=== PATIENT | female | born 1955 | race Caucasian/White ===

== ENCOUNTER 2022-10-29 20:01 | Emergency (ER) | payer SELFPAY ==
[~2022-10-29] VITALS: Ht 152.4 cm; Wt 63.5 kg
[2022-10-29] MEDS ORDERED: LEVE500 (20:12)
[2022-10-29 20:31] LABS: Source, Urine Voided
[2022-10-29 20:45] LABS: Bilirubin, Urine Neg (Neg); Blood, Urine 4+ (Neg); Glucose Qualitative, Urine Neg (Neg); Ketones, Urine Neg (Neg); Leukocyte Esterase, Urine 1+ (Neg); Nitrite, Urine Neg (Neg); Protein, Urine 3+ (Neg); Urobilinogen, Urine NORM (Normal)
[2022-10-29 20:46] LABS: BASOPHILS ABSOLUTE AUTO 0.02 K/mm3 (0.00-0.23); BASOPHILS PERCENT AUTO 0 % (0-2); EOSINOPHILS PERCENT AUTO 0 % (0-6); Hematocrit 39.7 % (33.0-51.0); Hemoglobin 12.8 g/dL (11.5-16.0); IMMATURE GRAN ABSOLUTE AUTO 0.06 K/mm3 (0.00-0.10); IMMATURE GRAN PERCENT AUTO 1 % (0-1); LYMPHOCYTES ABSOLUTE AUTO 0.44 K/mm3 (0.84-5.20); LYMPHOCYTES PERCENT AUTO 5 % (21-46); MONOCYTES ABSOLUTE AUTO 0.23 K/mm3 (0.16-1.47); MONOCYTES PERCENT AUTO 3 % (4-13); Mean Corpuscular HGB 29.8 pg (26.0-34.0); Mean Corpuscular HGB Conc 32.2 g/dL (31.5-36.5); Mean Corpuscular Volume 93 fL (80-100); Mean Platelet Volume 10.2 fL (9.1-12.4); NEUTROPHILS ABSOLUTE AUTO 7.53 K/mm3 (1.96-9.15); NEUTROPHILS PERCENT AUTO 91 % (41-73); Platelet Count 100 K/mm3 (150-400); RDW Coefficient Variation 13.5 % (11.7-14.2); RDW Standard Deviation 45.7 fL (35.1-46.3); Red Blood Cell Count 4.29 M/mm3 (3.80-5.20); White Blood Cell Count 8.28 K/mm3 (4.00-11.30)
[2022-10-29 20:50] LABS: Appearance, Urine Clear (Clear); Color, Urine Yellow (P-Yellow)
[2022-10-29 20:57] LABS: Amorphous Light (0-Heavy); Bacteria Mod /hpf; Squamous Epithelial Cells Few /hpf (Few); White Blood Cells, Urine 0-2 /hpf (0-5)
[2022-10-29 21:09] LABS: Albumin, Blood 3.7 g/dL (3.4-5.0); Albumin/Globulin Ratio 0.9 (0.8-1.8); Bilirubin, Total 0.7 mg/dL (0.1-1.0); Calcium, Blood 8.9 mg/dL (8.5-10.1); Creatinine, Blood 1.68 mg/dL (0.40-1.00); Globulin, Blood 4.3 g/dL (2.2-4.0); Potassium, Blood 4.5 mmol/L (3.5-5.5)
[2022-10-30] MEDS ORDERED: PROM12.5S PR (00:22)
[2022-10-30 00:45] VITALS: BP 182/117
== END 2022-10-30 00:55 | disposition home or self-care (01) ==
LOC: ER 20:01
PROVIDERS: Student in an Organized Health Care Education/Training Program
DX: K52.9 Noninfective gastroenteritis and colitis, unspecified (principal); M25.552 Pain in left hip; Z88.8 Allergy status to other drugs, medicaments and biological substances; Z79.899 Other long term (current) drug therapy; I50.9 Heart failure, unspecified; E11.22 Type 2 diabetes mellitus with diabetic chronic kidney disease; N18.9 Chronic kidney disease, unspecified; F17.210 Nicotine dependence, cigarettes, uncomplicated
CPT/HCPCS: 74177; 80053; 81001; 83690; 85025; 87086; 96361; 96374-59; 96375; 96376; 99284-25; J1790; J2060; J2270; J2405; J7030; Q9967

== ENCOUNTER 2022-11-22 06:13 | Inpatient (IN) | payer OTHER ==
[~2022-11-22] VITALS: Ht 149.9 cm; Wt 64.5 kg
[~2022-11-22 06:13] MED LIST: LEVE500; PROM12.5S PR
[2022-11-22 06:53] LABS: BASOPHILS ABSOLUTE AUTO 0.02 K/mm3 (0.00-0.23); BASOPHILS PERCENT AUTO 1 % (0-2); EOSINOPHILS ABSOLUTE AUTO 0.11 K/mm3 (0.00-0.68); EOSINOPHILS PERCENT AUTO 3 % (0-6); Hematocrit 38.3 % (33.0-51.0); IMMATURE GRAN ABSOLUTE AUTO 0.02 K/mm3 (0.00-0.10); IMMATURE GRAN PERCENT AUTO 1 % (0-1); LYMPHOCYTES ABSOLUTE AUTO 0.53 K/mm3 (0.84-5.20); LYMPHOCYTES PERCENT AUTO 13 % (21-46); MONOCYTES ABSOLUTE AUTO 0.24 K/mm3 (0.16-1.47); MONOCYTES PERCENT AUTO 6 % (4-13); Mean Corpuscular HGB 29.8 pg (26.0-34.0); Mean Corpuscular HGB Conc 31.3 g/dL (31.5-36.5); Mean Corpuscular Volume 95 fL (80-100); Mean Platelet Volume 10.6 fL (9.1-12.4); NEUTROPHILS ABSOLUTE AUTO 3.25 K/mm3 (1.96-9.15); NEUTROPHILS PERCENT AUTO 78 % (41-73); Platelet Count 110 K/mm3 (150-400); RDW Standard Deviation 49.4 fL (35.1-46.3); Red Blood Cell Count 4.03 M/mm3 (3.80-5.20); White Blood Cell Count 4.17 K/mm3 (4.00-11.30)
[2022-11-22 07:12] LABS: Albumin, Blood 3.6 g/dL (3.4-5.0); Albumin/Globulin Ratio 0.9 (0.8-1.8); Bilirubin, Total 0.5 mg/dL (0.1-1.0); Bun/Creatinine Ratio 15.9 (12.0-20.0); Creatinine, Blood 2.01 mg/dL (0.40-1.00); Globulin, Blood 3.9 g/dL (2.2-4.0); Magnesium, Blood 1.8 mg/dL (1.6-2.4); Potassium, Blood 4.9 mmol/L (3.5-5.5); Total Protein, Blood 7.5 g/dL (6.4-8.2)
[2022-11-22 12:31] LABS: CHOL/HDL RATIO 2.7; Cholesterol 155 mg/dL (50-200); HDL Cholesterol 58 mg/dL (>39); LDL/HDL RATIO 1.5; Low Density Lipoprotein Chol 89 mg/dL (0-110); Triglycerides 41 mg/dL (30-160); Very Low Density Lipoprot Chol 8 mg/dL (6-32)
[2022-11-22] MEDS ORDERED: LEVE500 PO (14:54)
[2022-11-22] MEDS ORDERED: CYCL10 PO (14:55)
--- NOTE | 2022-11-22 15:00 | NUR ---
PT ARRIVED TO ROOM 329 FROM ED AT 1440 BY [facility]. TRANSFERED FROM [facility] TO BED USING HER CANE AND SBA. SETTLED IN TO BED AND ORIENTED TO ROOM AND CALL BUTTON.
--- NOTE | 2022-11-22 18:56 | NUR ---
SHIFT SUMMARY PT UP TO BATHROOM SEVERAL TIMES AND VOIDING SMALL AMOUNTS. USED CANE FIRST FEW TIMES BUT TRANSITIONED HER TO A FWW WITH IMPROVEMENT. REPORTS SHE HAD A HIP FX A COUPLE YEARS AGO THAT WASN'T SURGICALLY TREATED AND HAS BEEN PAINFUL SINCE. WALKS WITH A LIMP. STATES SHE GENERALLY TAKE OXYCODONE 5-10 MG WHICH SHE RAN OUT OF YESTERDAY THAT SHE HAD BEEN GETTING FROM A PAIN CLINIC IN [place] NEAR HER PREVIOUS HOME. SPOKE WITH MD AND RECEIVED ORDER FOR OXYCODONE FOR PAIN CONTROL. WILL REPORT CONDITION TO ONCOMING SHIFT.
[2022-11-22 19:54] VITALS: BP 150/78
[2022-11-23 02:47] VITALS: BP 147/81
--- NOTE | 2022-11-23 04:31 | NUR ---
SHIFT SUMMARY PATIENT IS ALERT AND ORIENTED. PATIENT HAS HAD NO ACUTE EVENTS THIS SHIFT. VITAL SIGNS REVIEWED. PATIENT HAS HAD NO COMPLAINTS OF SOB, NAUSEA, OR VOMITTING THIS SHIFT. PATIENT HAS COMPLAINED OF PAIN, OF WHICH IS CHRONIC PAIN. MEDICATED PER EMAR. PATIENT HAS BEEN UP MULTIPLE TIMES WITH ASSISTANCE FOR SMALL VOIDS. PATIENT HAS BEEN RESTING MOST OF SHIFT. BED IN LOCKED AND LOWEST POSITION. CALL LIGHT IN PLACE. WILL MONITOR UNTIL SHIFT CHANGE.
[2022-11-23 05:15] LABS: BASOPHILS ABSOLUTE AUTO 0.01 K/mm3 (0.00-0.23); BASOPHILS PERCENT AUTO 0 % (0-2); EOSINOPHILS PERCENT AUTO 0 % (0-6); Hematocrit 35.2 % (33.0-51.0); Hemoglobin 11.3 g/dL (11.5-16.0); IMMATURE GRAN ABSOLUTE AUTO 0.02 K/mm3 (0.00-0.10); IMMATURE GRAN PERCENT AUTO 1 % (0-1); LYMPHOCYTES ABSOLUTE AUTO 0.28 K/mm3 (0.84-5.20); LYMPHOCYTES PERCENT AUTO 7 % (21-46); MONOCYTES ABSOLUTE AUTO 0.12 K/mm3 (0.16-1.47); MONOCYTES PERCENT AUTO 3 % (4-13); Mean Corpuscular HGB 29.8 pg (26.0-34.0); Mean Corpuscular HGB Conc 32.1 g/dL (31.5-36.5); Mean Corpuscular Volume 93 fL (80-100); NEUTROPHILS ABSOLUTE AUTO 3.71 K/mm3 (1.96-9.15); NEUTROPHILS PERCENT AUTO 90 % (41-73); Platelet Count 102 K/mm3 (150-400); RDW Coefficient Variation 13.5 % (11.7-14.2); Red Blood Cell Count 3.79 M/mm3 (3.80-5.20); White Blood Cell Count 4.14 K/mm3 (4.00-11.30)
[2022-11-23 05:41] LABS: Albumin, Blood 3.4 g/dL (3.4-5.0); Albumin/Globulin Ratio 0.9 (0.8-1.8); Bilirubin, Total 0.5 mg/dL (0.1-1.0); Bun/Creatinine Ratio 21.3 (12.0-20.0); Calcium, Blood 8.8 mg/dL (8.5-10.1); Creatinine, Blood 1.97 mg/dL (0.40-1.00); Globulin, Blood 3.9 g/dL (2.2-4.0); Magnesium, Blood 1.8 mg/dL (1.6-2.4); Potassium, Blood 5.4 mmol/L (3.5-5.5); Total Protein, Blood 7.3 g/dL (6.4-8.2)
[2022-11-23 06:36] VITALS: BP 187/110
[2022-11-23 07:12] VITALS: BP 150/87
[2022-11-23 15:13] VITALS: BP 140/83
--- NOTE | 2022-11-23 17:03 | NUR ---
SHIFT SUMMARY PT INDEPENDENT UP TO BSC. REPORTS BACK PAIN THAT IS REPRODUCEABLE WITH PALPATION. NO FURTHER CHEST PAIN SINCE THIS MORNING AT SHIFT CHANGE. DOES STATE SHE HAS SPASMS IN VARIOUS PLACES ON HER BODY THROUGH THE DAY. WALKS WITH A LIMP DUE TO HX OF L HIP INJURY. SOB WITH ACTIVITY. USING A FWW FOR MOBILITY AND IT WORKS BETTER THAN A CANE FROM OBSERVATION. STATES SHE HAS A WALKER AT HOME BUT A WHEEL IS BROKE ON IT.
[2022-11-23 19:54] VITALS: BP 125/70
[2022-11-24 04:36] VITALS: BP 132/75
--- NOTE | 2022-11-24 04:47 | NUR ---
SHIFT MOSTLY UNREMARKABLE. PT TOOK 2100 MEDICATIONS WITHOUT DIFFICULTY. UNTIL VERY RECENTLY, PAIN WAS WELL MANAGED ON CURRENT MEDICATION REGIMEN. PT COMPLAINED OF SEVERE BREAKTHROUGH PAIN FOR WHICH I WAS ABLE TO RECEIVE ORDER FROM HOSPITALIST FOR 25 MCG OF FENTANYL ONE TIME WITH 25 MCG MORE IN A HALF HOUR IF PAIN HAD NOT SUBSIDED. ENTERED ORDER AND ADMINISTERED FIRST DOSE, WILL MONITOR TO SEE HOW PAIN RESPONDS TO THIS DOSE. PULLED RHA IV DUE TO LEAKING. PT REQUESTED TO NOT HAVE NEW IV PLACED QUITE YET SHE WOULD LIKE TO TRY AND SLEEP. SHIFT HAS OTHERWISE BEEN UNREMARKABLE. PT IS AOX4, PLEASANT, COOPERATIVE WITH CARE. BED LOCKED IN LOWEST POSITION. CALL LIGHT LEFT WITHIN REACH.
[2022-11-24 07:20] VITALS: BP 128/66
[2022-11-24 08:40] LABS: Hematocrit 34.6 % (33.0-51.0); Hemoglobin 11.3 g/dL (11.5-16.0); Mean Corpuscular HGB 29.9 pg (26.0-34.0); Mean Corpuscular HGB Conc 32.7 g/dL (31.5-36.5); Mean Corpuscular Volume 92 fL (80-100); Mean Platelet Volume 10.8 fL (9.1-12.4); Platelet Count 116 K/mm3 (150-400); RDW Coefficient Variation 13.9 % (11.7-14.2); RDW Standard Deviation 47.2 fL (35.1-46.3); Red Blood Cell Count 3.78 M/mm3 (3.80-5.20); White Blood Cell Count 6.39 K/mm3 (4.00-11.30)
[2022-11-24 09:02] LABS: Albumin, Blood 3.4 g/dL (3.4-5.0); Albumin/Globulin Ratio 0.9 (0.8-1.8); Bilirubin, Total 0.4 mg/dL (0.1-1.0); Bun/Creatinine Ratio 27.6 (12.0-20.0); Calcium, Blood 8.1 mg/dL (8.5-10.1); Creatinine, Blood 2.68 mg/dL (0.40-1.00); Globulin, Blood 3.9 g/dL (2.2-4.0); Potassium, Blood 5.1 mmol/L (3.5-5.5); Total Protein, Blood 7.3 g/dL (6.4-8.2)
[2022-11-24 15:01] VITALS: BP 166/95
--- NOTE | 2022-11-24 16:43 | NUR ---
SHIFT SUMMARY PT A&OX4, MOOD UP AND DOWN T/O SHIFT. FAMILY IN TO SEE PT DURING VISITING HOURS. PT BECOMES TEARFUL T/O SHIFT. DUE TO PAIN/TALKING ABOUT RECENTLY FAMILY MEMBERS. VSS. CALL LIGHT W/IN REACH. TOLERATING PO INTAKE WELL SBA. RA
[2022-11-24 20:18] VITALS: BP 143/84
--- NOTE | 2022-11-24 20:31 | NUR ---
CALL FROM [facility] AT 2020. PT HAS HAD [address] ELEVATION ON MCL LEAD OVER THE PAST SEVERAL HOURS. UP TO HIGH OF 2.2 FROM BASELINE OF 2.0. VITALS WNL. PT ASYMPTOMATIC OUTSIDE OF RIB AND BACK PAIN WHICH IS CHRONIC. NO OTHER SYMPTOMS. DISCUSSION WITH ZAK GRAHAM RN. NO NEED TO NOTIFY HOSPITALIST UNLESS ELEVATION BECOMES MORE SEVERE OR OTHER SYMPTOMS PRESENT. WILL CONTINUE TO MONITOR.
[2022-11-25 04:00] VITALS: BP 165/95
--- NOTE | 2022-11-25 05:13 | NUR ---
SHIFT MOSTLY UNREMARKABLE. PT HAD FEW SCATTERED EVENTS OF VERY MILD ST ELEVATION ON MCL LEAD PER ASSISTANT VICE PRESIDENT. DISCUSSED WITH ZAK STRAUSS RN. SEE RELATED NOTE FOR DETAILS. SHIFT HAS OTHERWISE BEEN UNREMARKABLE. PAIN SOMEWHAT WELL MANAGED PER EMAR. PT STILL HAS PAIN BETWEEN DOSES AND REPORTS SHE TYPICALLY TAKES A HIGHER DOSAGE AT HOME BUT PER DAY SHIFT REPORT PHYSICIAN IS RESISTANT TO INCREASE DOSAGE. PT WAS COMPLAINING OF CRAMPS IN HAND EARLY IN SHIFT. NOTIFIED HOSPITALIST WHO ORDERED DAILY MAGNESIUM TO ATTEMPT TO ALLEVIATE THIS. ADMINISTERED MAG OXIDE EARLY IN SHIFT SINCE WHICH TIME PT HAS NOT COMPLAINED OF HAND CRAMPS. AOX4, PLEASANT, COOPERATIVE WITH CARE. INDEPENDENT TO COMMODE WITHIN ROOM. USES CALL LIGHT APPROPRIATELY. BED LOCKED IN LOWEST POSITION. CALL LIGHT LEFT WITHIN REACH.
[2022-11-25 06:03] LABS: Bun/Creatinine Ratio 30.8 (12.0-20.0); Calcium, Blood 8.2 mg/dL (8.5-10.1); Creatinine, Blood 2.73 mg/dL (0.40-1.00); Potassium, Blood 4.3 mmol/L (3.5-5.5)
[2022-11-25 07:58] VITALS: BP 118/65
[2022-11-25 16:25] VITALS: BP 157/77
--- NOTE | 2022-11-25 16:50 | NUR ---
SHIFT SUMMARY- VSS. C/O PAIN, BACK/CHEST/RIB. NO CARDIAC EVENTS REPORTED FROM TELE. ON RA, PULSE OX HIGH 90'S. A&O X4. PLEASANT AND COMPLIANT. WILL CONTINUE TO MONITOR. CALL LIGHT IN REACH. BED ALARM ON.
[2022-11-25 19:42] VITALS: BP 170/91
--- NOTE | 2022-11-26 04:06 | NUR ---
SHIFT MOSTLY UNREMARKABLE. PRIMARY SHIFT GOAL REMAINS PAIN MANAGEMENT PT HAS FREQUENT BREAKTHROUGH PAIN ON CURRENT OXYCODONE REGIMEN. NOTES PAIN REMAINS IN UPPER BACK AND RIB. PT ABLE TO BEAR THROUGH IT WITHOUT INCREASED DOSAGE OR ADDITIONAL MEDICATION THUS FAR. ABLE TO SLEEP IN BED AFTER 0200 OXYCODONE ADMINISTRATION. SHIFT HAS OTHERWISE BEEN UNREMARKABLE. TELE ON THROUGHOUT SHIFT, NO EVENTS. CONTINUOUS PULSE OX IN PLACE, SATTING WELL ON ROOM AIR. AOX4, PLEASANT, COOPERATIVE WITH CARE.
[2022-11-26 04:13] VITALS: BP 162/78
[2022-11-26 05:22] LABS: Hematocrit 36.2 % (33.0-51.0); Hemoglobin 11.5 g/dL (11.5-16.0); Mean Corpuscular HGB 29.7 pg (26.0-34.0); Mean Corpuscular HGB Conc 31.8 g/dL (31.5-36.5); Mean Corpuscular Volume 94 fL (80-100); Mean Platelet Volume 10.6 fL (9.1-12.4); Platelet Count 122 K/mm3 (150-400); RDW Coefficient Variation 13.8 % (11.7-14.2); RDW Standard Deviation 47.2 fL (35.1-46.3); Red Blood Cell Count 3.87 M/mm3 (3.80-5.20); White Blood Cell Count 4.49 K/mm3 (4.00-11.30)
[2022-11-26 05:49] LABS: Albumin, Blood 3.4 g/dL (3.4-5.0); Albumin/Globulin Ratio 0.9 (0.8-1.8); Bilirubin, Total 0.4 mg/dL (0.1-1.0); Bun/Creatinine Ratio 31.3 (12.0-20.0); Calcium, Blood 8.5 mg/dL (8.5-10.1); Creatinine, Blood 2.68 mg/dL (0.40-1.00); Globulin, Blood 3.6 g/dL (2.2-4.0); Magnesium, Blood 2.5 mg/dL (1.6-2.4); Potassium, Blood 4.9 mmol/L (3.5-5.5)
[2022-11-26 07:59] VITALS: BP 139/71
--- NOTE | 2022-11-26 18:27 | NUR ---
SHIFT SUMMARY PT AOX4 AND COOPERATIVE WITH CARE, CALLS WELL. NO COMPLAINTS OTHER THAN OF PAIN THIS SHIFT. THE PROVIDER WAS NOTIFIED AND ADJUSTEMENTS WERE MADE TO HER PAIN MEDICATIONS. PT HAS BEEN SLEEPING OFF AND ON T/O THE SHIFT, USING THE BSC INDEPENDENTLY. CALL LIGHT WITHIN REACH AND BED IN THE LOWEST POSITION. WILL REPORT TO ONCOMING NURSE.
[2022-11-26 19:57] VITALS: BP 128/66
[2022-11-27 03:04] VITALS: BP 140/79
[2022-11-27 06:01] LABS: Albumin, Blood 3.2 g/dL (3.4-5.0); Anion Gap 9 mmol/L (6-16); Blood Urea Nitrogen 77 mg/dL (8-24); Bun/Creatinine Ratio 35.2 (12.0-20.0); CO2, Blood 23 mmol/L (21-32); Calcium, Blood 8.6 mg/dL (8.5-10.1); Chloride, Blood 110 mmol/L (98-108); Creatinine, Blood 2.19 mg/dL (0.40-1.00); Glomerular Filtration Rate 24 (60-); Glucose, Blood 110 mg/dL (70-99); Phosphorus, Blood 4.9 mg/dL (2.5-4.9); Potassium, Blood 5.6 mmol/L (3.5-5.5); Sodium, Blood 142 mmol/L (136-145)
[2022-11-27 07:24] VITALS: BP 136/74
--- NOTE | 2022-11-27 07:25 | NUR ---
SHIFT SUMMARY: A&O X 4, ABLE TO MAKE NEEDS KNOWN, USES CALL LIGHT APPROPRIATELY. OXYCODONE 5MG Q 4 HOURS FOR PAIN MANAGEMENT. REQUESTED CHEESE STICKS THIS SHIFT FOR SNACK. SHE AMBULATES IN ROOM WITHOUT ASSISTANCE, USES BSC. CONTINUES ON TELE FOR MONITORING. CALL LIGHT WITHIN REACH.
--- NOTE | 2022-11-27 09:54 | NUR ---
NURSE NOTE THIS NURSE AGREES WITH STUDENT NURSE SHIFT ASSESSMENT
[2022-11-27 14:37] VITALS: BP 143/72
[2022-11-27 15:26] VITALS: BP 157/87
--- NOTE | 2022-11-27 17:28 | NUR ---
SHIFT SUMMARY: PT REMAINS IN BED THROUGHOUT THIS SHIFT. REPORTS OF CHRONIC BACK PAIN CONTINUE AND PT MEDICATED WITH PRN ROXICODONE AT NEAR MAXIMUM INTERVALS WITH MODERATE PAIN RELIEF REPORTED AT REASSESSMENT. PT COMPLIANT WITH CARE AND TAKES ALL SCHEDULED MEDICATIONS WITH THE EXCEPTION OF MIRALAX SHE REPORTS LOOSE BOWELS TODAY. TELE MONITORING CONTINUES WITH NSR AT 93 BEATS/MIN. BLOOD SUGARS SOMEWHAT STABLE WITH ONLY LUNCH TIME SUGAR REQUIRING INSULIN COVERAGE. PT DECLINES TO AMBULATE CITING DISCOMFORT AND EXERTIONAL FATIGUE.
--- NOTE | 2022-11-27 17:46 | NUR ---
NURSE NOTE THIS RN AGREES WITH SHIFT SUMMARY AND ASSESSMENTS DONE BY STONE PLANER.
[2022-11-27 19:13] VITALS: BP 129/63
--- NOTE | 2022-11-27 23:54 | NUR ---
SHIFT SUMMARY: A&O X 3, ABLE TO MAKE NEEDS KNOWN. DECLINED TO AMBULATE THIS EVENING IN HALLWAY. IS DANGLING AT SIDE OF BED. PAIN REQUEST ONE TIME THIS EVENING OXYCODONE 5 MG WHICH IS EFFECTIVE. CALL LIGHT WITHIN REACH.
[2022-11-28 02:55] VITALS: BP 146/78
--- NOTE | 2022-11-28 05:25 | NUR ---
P[place] WAS UP AND DOWN FOR MOST OF THE NIGHT. ORIENTED, CALLS TO MAKE NEEDS KNOWN, IND TO BSC OR RESTROOM. CHRONIC PAIN TREATED PER MAR. HTN, OTHERWISE VSS. ON RA AND CONT PULSE OX. WET, DIM, COARSE LUNG SOUNDS WITH A PRODUCTIVE COUGH. WILL CONT TO MONITOR.
[2022-11-28 06:19] LABS: Albumin, Blood 3.3 g/dL (3.4-5.0); Anion Gap 7 mmol/L (6-16); Blood Urea Nitrogen 66 mg/dL (8-24); Bun/Creatinine Ratio 31.6 (12.0-20.0); CO2, Blood 21 mmol/L (21-32); Calcium, Blood 8.5 mg/dL (8.5-10.1); Chloride, Blood 111 mmol/L (98-108); Creatinine, Blood 2.09 mg/dL (0.40-1.00); Glomerular Filtration Rate 26 (60-); Glucose, Blood 84 mg/dL (70-99); Phosphorus, Blood 4.8 mg/dL (2.5-4.9); Sodium, Blood 139 mmol/L (136-145)
[2022-11-28 06:21] LABS: Potassium, Blood 6.1 mmol/L (3.5-5.5)
[2022-11-28 07:27] VITALS: BP 142/76
[2022-11-28 10:28] LABS: Bun/Creatinine Ratio 31.2 (12.0-20.0); Calcium, Blood 8.9 mg/dL (8.5-10.1); Creatinine, Blood 2.08 mg/dL (0.40-1.00); Potassium, Blood 5.3 mmol/L (3.5-5.5)
--- NOTE | 2022-11-28 11:43 | NUR ---
NURSE NOTE THIS RN HAS REVIEWED AND AGREED WITH STUDENT NURSES SHIFT ASSESSMENT AND DOCUMENTATION
[2022-11-28] MEDS ORDERED: ASPI81CH PO (11:48)
[2022-11-28] MEDS ORDERED: ALBU2.5V5 INH (11:48)
[2022-11-28] MEDS ORDERED: GUAI600T33 PO (11:49)
[2022-11-28] MEDS ORDERED: BUDESONIDE0.5 MG/2 M INH (11:49)
[2022-11-28] MEDS ORDERED: IPRAT-ALBUT 0.5-3 ML INH (11:50)
[2022-11-28] MEDS ORDERED: OXYC5 PO (11:51)
[2022-11-28] MEDS ORDERED: ASPERFLEX1 EACH TOP (11:51)
[2022-11-28] MEDS ORDERED: ALBU90OI INH (11:52)
[2022-11-28] MEDS ORDERED: MIRALAX1714 PO (11:52)
[2022-11-28] MEDS ORDERED: FURO20 PO (11:53)
--- NOTE | 2022-11-28 13:05 | NUR ---
DISCHARGE SUMMARY: PT DISCHARGED TO HOME WITH FAMILY AND AWAITING POV. IV REMOVED AND INTACT. PT PROVIDED DISCHARGE INSTRUCTIONS TO INCLUDE DIET AND FLUID RESTRICTIONS, MEDICATION REGIMEN, SMOKING CESSATION, AND FOLLOW UP CARE. PT AND FAMILY ALLOWED TO ASK QUESTIONS AND ANSWERED BY MED FLOOR STAFF. PT BELONGINGS GATHERED AND SENT HOME WITH PT. PROFESSOR OF JOURNALISM IN TO SPEAK WITH PT AND FAMILY ABOUT ADDITIONAL BENEFITS AND RESOURCES THAT MAY BE AVAILABLE. PT DISCHARGED VIA WHEELCHAIR.
--- NOTE | 2022-11-28 13:31 | NUR ---
DISCHARGE NOTE THIS RN READ AND AGREED WITH TROLLEY COACH DRIVER DISCHARGE NOTE, SHIFT ASSESSMENT AND DOCUMENTATION.
== END 2022-11-28 15:40 | disposition home health service (06) | DRG 291 ==
LOC: ER 06:13 → MEDS 10:55
PROVIDERS: Internal Medicine; Student in an Organized Health Care Education/Training Program; ADMIT Internal Medicine
DX: I50.33 Acute on chronic diastolic (congestive) heart failure (principal); J96.91 Respiratory failure, unspecified with hypoxia; J44.1 Chronic obstructive pulmonary disease with (acute) exacerbation; K76.6 Portal hypertension; M87.852 Other osteonecrosis, left femur; K70.30 Alcoholic cirrhosis of liver without ascites; Z66 Do not resuscitate; D69.6 Thrombocytopenia, unspecified; N18.30 Chronic kidney disease, stage 3 unspecified; E11.22 Type 2 diabetes mellitus with diabetic chronic kidney disease; E87.5 Hyperkalemia; G40.909 Epilepsy, unspecified, not intractable, without status epilepticus; E11.65 Type 2 diabetes mellitus with hyperglycemia; G25.81 Restless legs syndrome; G89.4 Chronic pain syndrome; F17.210 Nicotine dependence, cigarettes, uncomplicated; M25.552 Pain in left hip; T38.0X5A Adverse effect of glucocorticoids and synthetic analogues, initial encounter; B95.2 Enterococcus as the cause of diseases classified elsewhere; B96.89 Other specified bacterial agents as the cause of diseases classified elsewhere; F10.11 Alcohol abuse, in remission; Z88.8 Allergy status to other drugs, medicaments and biological substances; Z79.899 Other long term (current) drug therapy; Z87.19 Personal history of other diseases of the digestive system; Z90.721 Acquired absence of ovaries, unilateral
CPT/HCPCS: 36415; 71046; 73522; 80048; 80053; 80061; 80069; 82947; 83036; 83735; 83880; 84132; 84145; 84484; 85025; 85027; 87070; 87077; 87186; 87205; 93005; 93010; 94640; 94664; 94760; 94762; 96365; 96366; 96375; 96376; 97116; 97162; 99285-25; A9270; C8929; J0612; J0696; J1100; J1644; J1815; J1940; J2270; J3010; Q9957

== ENCOUNTER 2023-01-27 13:11 | Emergency (ER) | payer MEDICARE, OTHER ==
[~2023-01-27] VITALS: Ht 152.4 cm; Wt 64.9 kg
[~2023-01-27 13:11] MED LIST changes: +ALBU2.5V5 INH; +ALBU90OI INH; +ASPERFLEX1 EACH TOP; +ASPI81CH PO; +BUDESONIDE0.5 MG/2 M INH; +CYCL10 PO; +DICY20 PO; +FURO20 PO; +GUAI600T33 PO; +IPRAT-ALBUT 0.5-3 ML INH; +LEVE500 PO; +METO10 PO; +MIRALAX1714 PO; +ONDA4ODT MM; +OXYC5 PO
[2023-01-27 15:07] LABS: BASOPHILS ABSOLUTE AUTO 0.02 K/mm3 (0.00-0.23); BASOPHILS PERCENT AUTO 0 % (0-2); EOSINOPHILS PERCENT AUTO 0 % (0-6); Hemoglobin 14.5 g/dL (11.5-16.0); IMMATURE GRAN ABSOLUTE AUTO 0.04 K/mm3 (0.00-0.10); IMMATURE GRAN PERCENT AUTO 0 % (0-1); LYMPHOCYTES ABSOLUTE AUTO 0.75 K/mm3 (0.84-5.20); LYMPHOCYTES PERCENT AUTO 8 % (21-46); MONOCYTES ABSOLUTE AUTO 0.37 K/mm3 (0.16-1.47); MONOCYTES PERCENT AUTO 4 % (4-13); Mean Corpuscular HGB 29.1 pg (26.0-34.0); Mean Corpuscular HGB Conc 33.7 g/dL (31.5-36.5); Mean Corpuscular Volume 86 fL (80-100); Mean Platelet Volume 11.1 fL (9.1-12.4); NEUTROPHILS ABSOLUTE AUTO 8.31 K/mm3 (1.96-9.15); NEUTROPHILS PERCENT AUTO 88 % (41-73); Platelet Count 72 K/mm3 (150-400); RDW Coefficient Variation 13.2 % (11.7-14.2); RDW Standard Deviation 42.4 fL (35.1-46.3); Red Blood Cell Count 4.99 M/mm3 (3.80-5.20); White Blood Cell Count 9.49 K/mm3 (4.00-11.30)
[2023-01-27 15:35] LABS: Albumin, Blood 4.5 g/dL (3.4-5.0); Albumin/Globulin Ratio 1.2 (0.8-1.8); Bilirubin, Total 0.9 mg/dL (0.1-1.0); Bun/Creatinine Ratio 15.4 (12.0-20.0); Calcium, Blood 9.2 mg/dL (8.5-10.1); Creatinine, Blood 1.75 mg/dL (0.40-1.00); Globulin, Blood 3.6 g/dL (2.2-4.0); Potassium, Blood 4.9 mmol/L (3.5-5.5); Total Protein, Blood 8.1 g/dL (6.4-8.2)
[2023-01-27] MEDS ORDERED: ONDA4ODT MM (19:56)
[2023-01-27] MEDS ORDERED: DEXA4 PO (19:56)
[2023-01-27] MEDS ORDERED: AERONEB GO1 EACH INH (19:56)
[2023-01-27] MEDS ORDERED: FAMO20 PO (19:56)
[2023-01-27] MEDS ORDERED: ALBU2.5V5 INH (19:56)
[2023-01-27 20:30] VITALS: BP 179/97
[2023-01-27 23:46] LABS: Campylobacter Sp Not Detected (NOT DETECT); Cryptosporidium Not Detected (NOT DETECT); Cyclospora Cayetanensis Not Detected (NOT DETECT); E. Coli O157 Not Detected (NOT DETECT); Entamoeba Histolytica Not Detected (NOT DETECT); Enteroaggregative E. coli-EAEC Not Detected (NOT DETECT); Enteropathogenic E. coli-EPEC Not Detected (NOT DETECT); Enterotoxigenic E. coli-ETEC Not Detected (NOT DETECT); Giardia Lamblia Not Detected (NOT DETECT); Plesiomonas Shigelloides Not Detected (NOT DETECT); Salmonella Sp Not Detected (NOT DETECT); Shiga Toxin-prod E. coli-STEC Not Detected (NOT DETECT); Shigella/Enteroin E. coli-EIEC Not Detected (NOT DETECT); Vibrio Cholerae Not Detected (NOT DETECT); Vibrio Sp Not Detected (NOT DETECT); Yersinia Enterocolitica Not Detected (NOT DETECT)
[2023-01-27 23:47] LABS: Adenovirus F 40/41 Not Detected (NOT DETECT); Astrovirus Not Detected (NOT DETECT); Norovirus GI/GII Not Detected (NOT DETECT); Rotavirus A Not Detected (NOT DETECT); Sapovirus Not Detected (NOT DETECT)
== END 2023-01-27 20:49 | disposition home or self-care (01) ==
LOC: ER 13:11
PROVIDERS: Emergency Medicine; Student in an Organized Health Care Education/Training Program
DX: J44.1 Chronic obstructive pulmonary disease with (acute) exacerbation (principal); E86.0 Dehydration; K52.9 Noninfective gastroenteritis and colitis, unspecified; Z88.8 Allergy status to other drugs, medicaments and biological substances; Z79.51 Long term (current) use of inhaled steroids; Z79.82 Long term (current) use of aspirin; Z79.1 Long term (current) use of non-steroidal anti-inflammatories (NSAID); Z79.899 Other long term (current) drug therapy; F17.210 Nicotine dependence, cigarettes, uncomplicated; E11.22 Type 2 diabetes mellitus with diabetic chronic kidney disease; N18.30 Chronic kidney disease, stage 3 unspecified
CPT/HCPCS: 71046; 80053; 85025; 85379; 87507; 93005; 93010; 94640; 94664; 96374; 96375; 99284-25; A9270; J1100; J2405; J7030

== ENCOUNTER 2023-05-13 18:15 | Emergency (ER) | payer MEDICARE, OTHER ==
[~2023-05-13] VITALS: Ht 152.4 cm; Wt 72.6 kg
[~2023-05-13 18:15] MED LIST changes: +AERONEB GO1 EACH INH; +DEXA4 PO; +FAMO20 PO
[2023-05-13 19:25] LABS: BASOPHILS ABSOLUTE AUTO 0.03 K/mm3 (0.00-0.23); BASOPHILS PERCENT AUTO 0 % (0-2); EOSINOPHILS ABSOLUTE AUTO 0.03 K/mm3 (0.00-0.68); EOSINOPHILS PERCENT AUTO 0 % (0-6); Hematocrit 40.7 % (33.0-51.0); Hemoglobin 13.2 g/dL (11.5-16.0); IMMATURE GRAN ABSOLUTE AUTO 0.05 K/mm3 (0.00-0.10); IMMATURE GRAN PERCENT AUTO 1 % (0-1); LYMPHOCYTES ABSOLUTE AUTO 0.65 K/mm3 (0.84-5.20); LYMPHOCYTES PERCENT AUTO 7 % (21-46); MONOCYTES ABSOLUTE AUTO 0.38 K/mm3 (0.16-1.47); MONOCYTES PERCENT AUTO 4 % (4-13); Mean Corpuscular HGB 28.9 pg (26.0-34.0); Mean Corpuscular HGB Conc 32.4 g/dL (31.5-36.5); Mean Corpuscular Volume 89 fL (80-100); Mean Platelet Volume 10.1 fL (9.1-12.4); NEUTROPHILS ABSOLUTE AUTO 7.63 K/mm3 (1.96-9.15); NEUTROPHILS PERCENT AUTO 87 % (41-73); Platelet Count 86 K/mm3 (150-400); RDW Standard Deviation 46.3 fL (35.1-46.3); Red Blood Cell Count 4.56 M/mm3 (3.80-5.20); White Blood Cell Count 8.77 K/mm3 (4.00-11.30)
[2023-05-13 20:04] LABS: Albumin, Blood 3.8 g/dL (3.4-5.0); Albumin/Globulin Ratio 0.9 (0.8-1.8); Bilirubin, Total 0.5 mg/dL (0.1-1.0); Bun/Creatinine Ratio 17.8 (12.0-20.0); Calcium, Blood 9.3 mg/dL (8.5-10.1); Creatinine, Blood 1.97 mg/dL (0.40-1.00); Globulin, Blood 4.1 g/dL (2.2-4.0); Potassium, Blood 6.1 mmol/L (3.5-5.5); Total Protein, Blood 7.9 g/dL (6.4-8.2)
[2023-05-14 00:38] LABS: Bun/Creatinine Ratio 16.8 (12.0-20.0); Calcium, Blood 8.8 mg/dL (8.5-10.1); Creatinine, Blood 1.91 mg/dL (0.40-1.00); Potassium, Blood 6.1 mmol/L (3.5-5.5)
[2023-05-14 03:00] VITALS: BP 138/80
[2023-05-14 03:34] LABS: Bun/Creatinine Ratio 16.6 (12.0-20.0); Calcium, Blood 8.1 mg/dL (8.5-10.1); Creatinine, Blood 1.87 mg/dL (0.40-1.00)
== END 2023-05-14 04:25 | disposition home or self-care (01) ==
LOC: ER 18:15
PROVIDERS: Emergency Medicine; Internal Medicine; Student in an Organized Health Care Education/Training Program
DX: M25.552 Pain in left hip (principal); G89.29 Other chronic pain; R07.9 Chest pain, unspecified; E87.5 Hyperkalemia; N17.9 Acute kidney failure, unspecified; Z88.8 Allergy status to other drugs, medicaments and biological substances; Z79.899 Other long term (current) drug therapy; Z79.82 Long term (current) use of aspirin; F17.210 Nicotine dependence, cigarettes, uncomplicated; I50.9 Heart failure, unspecified; J44.9 Chronic obstructive pulmonary disease, unspecified; E11.22 Type 2 diabetes mellitus with diabetic chronic kidney disease; N18.30 Chronic kidney disease, stage 3 unspecified
CPT/HCPCS: 71045; 72170; 80048; 80053; 82947; 84484; 85025; 93005; 93010; 96361; 96374; 96375; 99284-25; A9270; J1815; J2405; J7030; J7060

== ENCOUNTER → 2023-05-24 | Outpatient (CLI) | payer MEDICARE, OTHER ==
[2023-05-27 08:09] LABS: COTININE Negative ng/mL (Cutoff=300)
== END | disposition home or self-care (01) ==
LOC: LAB SHORT 11:31 → LAB 11:31
PROVIDERS: Orthopaedic Surgery
DX: Z09 Encounter for follow-up examination after completed treatment for conditions other than malignant neoplasm (principal); Z87.891 Personal history of nicotine dependence

== ENCOUNTER 2023-08-15 07:58 | Day surgery (SDC) | payer MEDICARE, OTHER ==
[2023-08-15] VITALS (15 sets, daily range): BP systolic 101–181; BP diastolic 52–97
[~2023-08-15] VITALS: Ht 149.9 cm; Wt 76.6 kg
[~2023-08-15 07:58] MED LIST changes: +CLONIDINE HCL INFIL SCH; +CeFAZolin Sodium 2,000 MG in NS 50 ML IV SCH; +Chlorhexidine Mouth Care 15 ML UDC MT SCH; +EPINEPHRINE HCL INFIL SCH; +FENO54 PO; +HCL INFIL SCH; +Lactated Ringer's 1,000 ML IV SCH; +Milk Thistle175 M1 PO; +OxyCODONE HCL 10 MG TABCR PO SCH; +ROPIVACAINE 0.5% INFIL SCH; +[UNRECOGNIZED DRUG - OTHER] INFIL SCH
--- NOTE | 2023-08-15 08:30 | NUR ---
AUSCULTATED LUNGS. COURSE T/O. PATIENT DENIES SOB.
[2023-08-15] MEDS ORDERED: TRANEXAMIC ACID IV SCH (08:40)
[2023-08-15] MEDS ORDERED: NS IV SCH (08:40)
[2023-08-15] MEDS ORDERED: Midazolam HCl 1MG / ML 2ML Vial ONE (09:18)
[2023-08-15] MEDS ORDERED: FentaNYL Citrate 50 MCG/ML 2 ML Injection ONE ×2 (09:18→10:35)
[2023-08-15] MEDS ORDERED: propofoL 20 ML IV ONE (09:18)
[2023-08-15] MEDS ORDERED: Furosemide 20 MG Tab PO PRN (09:40)
[2023-08-15] MEDS ORDERED: Ondansetron 4 MG SoluTab MM PRN (09:40)
[2023-08-15] MEDS ORDERED: Prochlorperazine Edisylate 10 mg Vial IV PRN (09:45)
[2023-08-15] MEDS ORDERED: Metoclopramide HCl 5MG / ML 2ML Vial IV PRN ×2 (09:45→12:15)
[2023-08-15] MEDS ORDERED: Ondansetron HCl 2 MG / ML 2ML Vial IV PRN (09:45)
[2023-08-15] MEDS ORDERED: OxyCODONE HCL 5 MG TAB PO PRN ×2 (09:45)
[2023-08-15] MEDS ORDERED: DiphenhydrAMINE HCL 25 MG Cap PO PRN (09:50)
[2023-08-15] MEDS ORDERED: Lactated Ringer's 1,000 ML IV SCH (09:50)
[2023-08-15] MEDS ORDERED: HYDROmorphone HCl/Pf 1MG SYR IV PRN (09:50)
[2023-08-15] MEDS ORDERED: FLU VACC QS2023-24(6MOS UP)/PF 60 MCG/0.5 ML SYRINGE IM SCH (09:50)
[2023-08-15] MEDS ORDERED: Magnesium Hydroxide Conc 10 ML UDC PO PRN (09:50)
[2023-08-15] MEDS ORDERED: Promethazine HCl 25 MG Tab PO PRN (09:50)
[2023-08-15] MEDS ORDERED: Bisacodyl 10 MG Supp PR PRN (09:50)
[2023-08-15] MEDS ORDERED: Lidocaine HCl 2% 20 ML MDV ONE (10:11)
[2023-08-15] MEDS ORDERED: Ondansetron HCl 2 MG / ML 2ML Vial ONE (10:16)
[2023-08-15] MEDS ORDERED: Dexamethasone Sod Phos 10 MG/ML 1ML VIAL ONE (10:16)
[2023-08-15] MEDS ORDERED: Albuterol HFA200 ACT/6.7 GM INH INH PRN (10:30)
--- NOTE | 2023-08-15 10:50 | NUR ---
08/15/23 1050 Soha Nicole PRIOR TO PREPPING PATIENT'S SKIN, NOTED REDNESS AND IRRITATION PRESENT IN LOWER ABDOMEN AND SKIN FOLDS. NOTIFIED.
[2023-08-15] MEDS ORDERED: FentaNYL Citrate 50 MCG/ML 2 ML Injection IV PRN ×2 (12:15)
[2023-08-15] MEDS ORDERED: Metoclopramide HCl 5MG / ML 2ML Vial ONE (12:17)
[2023-08-15] MEDS ORDERED: Morphine Sulfate 4 MG/1 ML Injection IV PRN (12:20)
[2023-08-15] MEDS ORDERED: Labetalol HCL 5 MG/ML 4ML Injection (Single Dose) IV PRN (12:20)
[2023-08-15] MEDS ORDERED: Morphine Sulfate 4 MG/1 ML Injection ONE (12:23)
[2023-08-15] MEDS ORDERED: Budesonide 0.5 MG/2 ML RESP INH PRN (13:30)
--- NOTE | 2023-08-15 15:23 | NUR ---
SHIFT SUMMARY S/P L LIU, AQUACEL CDI, TEDS/SCDS/POLAR JOSE ON. A&OX4, VSS/1LNC FOR SATS >92%, ROSHAN PO, VOIDED/BSC, STAND BEDSIDE FWW/GB, PAIN TREATED PER EMAR, PHYSICAL THERAPY STARTED EVAL/WILL SEE AGAIN 2/14 AM. WILL REPORT TO RAFI FERRARI RN.
[2023-08-15] MEDS ORDERED: CeFAZolin Sodium 2,000 MG in NS 50 ML IV SCH (18:20)
[2023-08-15] MEDS ORDERED: LevETIRAcetam 500 MG Tab PO SCH (21:00)
[2023-08-15] MEDS ORDERED: Docusate Sodium 100 MG Cap PO SCH (21:00)
[2023-08-16 03:06] VITALS: BP 147/72
[2023-08-16 04:56] LABS: BASOPHILS ABSOLUTE AUTO 0.02 K/mm3 (0.00-0.23); BASOPHILS PERCENT AUTO 0 % (0-2); EOSINOPHILS PERCENT AUTO 0 % (0-6); Hematocrit 24.8 % (33.0-51.0); Hemoglobin 8.2 g/dL (11.5-16.0); IMMATURE GRAN ABSOLUTE AUTO 0.07 K/mm3 (0.00-0.10); IMMATURE GRAN PERCENT AUTO 1 % (0-1); LYMPHOCYTES ABSOLUTE AUTO 0.94 K/mm3 (0.84-5.20); LYMPHOCYTES PERCENT AUTO 6 % (21-46); MONOCYTES PERCENT AUTO 8 % (4-13); Mean Corpuscular HGB 30.1 pg (26.0-34.0); Mean Corpuscular HGB Conc 33.1 g/dL (31.5-36.5); Mean Corpuscular Volume 91 fL (80-100); Mean Platelet Volume 10.5 fL (9.1-12.4); NEUTROPHILS ABSOLUTE AUTO 12.41 K/mm3 (1.96-9.15); NEUTROPHILS PERCENT AUTO 85 % (41-73); Platelet Count 120 K/mm3 (150-400); RDW Standard Deviation 46.1 fL (35.1-46.3); Red Blood Cell Count 2.72 M/mm3 (3.80-5.20); White Blood Cell Count 14.64 K/mm3 (4.00-11.30)
[2023-08-16 05:25] LABS: Bun/Creatinine Ratio 20.3 (12.0-20.0); Calcium, Blood 8.2 mg/dL (8.5-10.1); Creatinine, Blood 2.12 mg/dL (0.40-1.00); Potassium, Blood 5.5 mmol/L (3.5-5.5)
--- NOTE | 2023-08-16 06:25 | NUR ---
SHIFT SUMMARY NOC. PT POD 1 FOR LEFT TOTAL HIP. PT'S AQUACEL IS C/D/I WITH POLAR PACK IN PLACE. PT MEDICATED FOR PAIN WITH RELIEF OF SX. PT NEEDED IV DILAUDID FOR BREAKTHROUGH PAIN. PT VOIDING, TOLERATING PO INTAKE, AND AMBULATES TO THE BR WITH 50% WBS ON LLE, WITH GAIT BELT, FWW, AND SBA. PT RESTED WITH EYES CLOSED AND CALL LIGHT IN REACH.
[2023-08-16 07:31] VITALS: BP 140/74
[2023-08-16] MEDS ORDERED: Aspirin 81 MG Chew PO SCH (09:00)
[2023-08-16] MEDS ORDERED: Fenofibrate 67 MG Cap PO SCH (09:00)
[2023-08-16] MEDS ORDERED: Percocet 5-3251 EACH PO (11:40)
--- NOTE | 2023-08-16 12:49 | NUR ---
DISCHARGED PATIENT TOLERATING PO INTAKE, WALKING, VOIDING, PASSING FLATUS. LEFT HIP DRESSING WITH AQUACEL C/D/I. PASSES THERAPY THIS AM. ALL DISCHARGE INSTRUCTIONS READ, DISCUSSED AND SIGNED. PRESCRIPTIONS IN PACKET WITH PATIENT. PATIENT LEAVES VIA [facility] W[facility]C TRANSPORT. IV DC'D INTACT.
== END 2023-08-16 12:49 | disposition home or self-care (01) ==
LOC: ORSCMMR 07:58 → ORD 09:15 → SURS 13:02 → ORSCMMR 08-16 12:49 → ORD 08-29 11:00
PROVIDERS: Orthopaedic Surgery
PROC: 0SRB0JZ Replacement of Left Hip Joint with Synthetic Substitute, Open Approach (ICD-10-PCS; principal; 2023-08-15 09:15)
DX: M16.12 Unilateral primary osteoarthritis, left hip (principal); M87.9 Osteonecrosis, unspecified; G47.33 Obstructive sleep apnea (adult) (pediatric); N18.4 Chronic kidney disease, stage 4 (severe); K72.90 Hepatic failure, unspecified without coma; I50.9 Heart failure, unspecified; Z87.891 Personal history of nicotine dependence; D69.6 Thrombocytopenia, unspecified; Z85.3 Personal history of malignant neoplasm of breast; G40.909 Epilepsy, unspecified, not intractable, without status epilepticus; Z79.899 Other long term (current) drug therapy
CPT/HCPCS: 36415; 36430; 72170; 80048; 85025; 86850; 86900; 86901; 88304; 94760; 97110; 97116; 97162; 97530; A9270; C1713; C1776; J0171; J0690; J0735; J1100; J1170; J2250; J2270; J2405; J2704; J2765; J2795; J3010; J7120; P9035

== ENCOUNTER 2023-12-12 12:15 | Emergency (ER) | payer MEDICARE, OTHER ==
[~2023-12-12] VITALS: Ht 152.4 cm; Wt 65.8 kg
[~2023-12-12 12:15] MED LIST changes: -CLONIDINE HCL INFIL SCH; -CeFAZolin Sodium 2,000 MG in NS 50 ML IV SCH; -Chlorhexidine Mouth Care 15 ML UDC MT SCH; -EPINEPHRINE HCL INFIL SCH; -HCL INFIL SCH; -Lactated Ringer's 1,000 ML IV SCH; -OxyCODONE HCL 10 MG TABCR PO SCH; +Percocet 5-3251 EACH PO; -ROPIVACAINE 0.5% INFIL SCH; -[UNRECOGNIZED DRUG - OTHER] INFIL SCH
[2023-12-12 13:10] LABS: Influenza A, PCR NEGATIVE (NEGATIVE); Influenza B, PCR NEGATIVE (NEGATIVE); Resp Syncytial Virus, PCR NEGATIVE (NEGATIVE); SARS-Cov-2 (COVID-19) PCR, MMC NEGATIVE (NEGATIVE)
[2023-12-12 13:10] LABS: BASOPHILS ABSOLUTE AUTO 0.03 K/mm3 (0.00-0.23); BASOPHILS PERCENT AUTO 0 % (0-2); EOSINOPHILS ABSOLUTE AUTO 0.01 K/mm3 (0.00-0.68); EOSINOPHILS PERCENT AUTO 0 % (0-6); Hematocrit 40.5 % (33.0-51.0); Hemoglobin 12.5 g/dL (11.5-16.0); IMMATURE GRAN ABSOLUTE AUTO 0.04 K/mm3 (0.00-0.10); IMMATURE GRAN PERCENT AUTO 1 % (0-1); LYMPHOCYTES ABSOLUTE AUTO 0.55 K/mm3 (0.84-5.20); LYMPHOCYTES PERCENT AUTO 7 % (21-46); MONOCYTES ABSOLUTE AUTO 0.26 K/mm3 (0.16-1.47); MONOCYTES PERCENT AUTO 3 % (4-13); Mean Corpuscular HGB 27.4 pg (26.0-34.0); Mean Corpuscular HGB Conc 30.9 g/dL (31.5-36.5); Mean Corpuscular Volume 89 fL (80-100); Mean Platelet Volume 11.2 fL (9.1-12.4); NEUTROPHILS ABSOLUTE AUTO 7.32 K/mm3 (1.96-9.15); NEUTROPHILS PERCENT AUTO 89 % (41-73); Platelet Count 102 K/mm3 (150-400); RDW Coefficient Variation 17.1 % (11.7-14.2); RDW Standard Deviation 55.4 fL (35.1-46.3); Red Blood Cell Count 4.56 M/mm3 (3.80-5.20); White Blood Cell Count 8.21 K/mm3 (4.00-11.30)
[2023-12-12 13:21] LABS: Albumin, Blood 3.8 g/dL (3.4-5.0); Albumin/Globulin Ratio 0.9 (0.8-1.8); Bilirubin, Total 0.8 mg/dL (0.1-1.0); Bun/Creatinine Ratio 13.6 (12.0-20.0); Calcium, Blood 9.3 mg/dL (8.5-10.1); Creatinine, Blood 2.42 mg/dL (0.40-1.00); Globulin, Blood 4.2 g/dL (2.2-4.0); Potassium, Blood 5.5 mmol/L (3.5-5.5)
[2023-12-12] MEDS ORDERED: NS 1,000 ML IV SCH (14:45)
[2023-12-12] MEDS ORDERED: Ondansetron HCl 2 MG / ML 2ML Vial IV ONE ×2 (14:45→16:55)
[2023-12-12] MEDS ORDERED: Midazolam HCl 1MG / ML 2ML Vial IV ONE (15:30)
[2023-12-12 17:17] LABS: Adenovirus F 40/41 Not Detected (NOT DETECT); Astrovirus Not Detected (NOT DETECT); Campylobacter Sp Not Detected (NOT DETECT); Cryptosporidium Not Detected (NOT DETECT); Cyclospora Cayetanensis Not Detected (NOT DETECT); E. Coli O157 Not Detected (NOT DETECT); Entamoeba Histolytica Not Detected (NOT DETECT); Enteroaggregative E. coli-EAEC Not Detected (NOT DETECT); Enteropathogenic E. coli-EPEC Not Detected (NOT DETECT); Enterotoxigenic E. coli-ETEC Not Detected (NOT DETECT); Giardia Lamblia Not Detected (NOT DETECT); Norovirus GI/GII Detected (NOT DETECT); Plesiomonas Shigelloides Not Detected (NOT DETECT); Rotavirus A Not Detected (NOT DETECT); Salmonella Sp Not Detected (NOT DETECT); Sapovirus Not Detected (NOT DETECT); Shiga Toxin-prod E. coli-STEC Not Detected (NOT DETECT); Shigella/Enteroin E. coli-EIEC Not Detected (NOT DETECT); Vibrio Cholerae Not Detected (NOT DETECT); Vibrio Sp Not Detected (NOT DETECT); Yersinia Enterocolitica Not Detected (NOT DETECT)
[2023-12-12 17:50] LABS: Source, Urine Clean Catch
[2023-12-12 17:54] LABS: Appearance, Urine Clear (Clear); Bilirubin, Urine Neg (Neg); Blood, Urine 4+ (Neg); Color, Urine Yellow (P-Yellow); Glucose Qualitative, Urine Neg (Neg); Ketones, Urine 1+ (Neg); Leukocyte Esterase, Urine 1+ (Neg); Nitrite, Urine Neg (Neg); Protein, Urine 3+ (Neg); Urobilinogen, Urine NORM (Normal)
[2023-12-12] MEDS ORDERED: Prochlorperazine Edisylate 10 mg Vial IV ONE (17:55)
[2023-12-12 18:10] LABS: Bacteria Mod /hpf; Squamous Epithelial Cells Few /hpf (Few)
[2023-12-12] MEDS ORDERED: CefTRIAXone Sodium 1,000 MG in NS 50 ML IV ONE (19:05)
[2023-12-12] MEDS ORDERED: CEPH500 PO (19:41)
[2023-12-12] MEDS ORDERED: LOPE2C PO (19:41)
[2023-12-12] MEDS ORDERED: ONDA4ODT MM (19:41)
[2023-12-12 19:45] VITALS: BP 150/68
== END 2023-12-12 20:00 | disposition home or self-care (01) ==
LOC: ER 12:15
PROVIDERS: Emergency Medicine; Student in an Organized Health Care Education/Training Program
DX: A08.4 Viral intestinal infection, unspecified (principal); E86.0 Dehydration; N39.0 Urinary tract infection, site not specified; I50.9 Heart failure, unspecified; N18.30 Chronic kidney disease, stage 3 unspecified; E11.22 Type 2 diabetes mellitus with diabetic chronic kidney disease; J44.9 Chronic obstructive pulmonary disease, unspecified; F17.210 Nicotine dependence, cigarettes, uncomplicated; Z88.6 Allergy status to analgesic agent; Z88.8 Allergy status to other drugs, medicaments and biological substances; Z79.899 Other long term (current) drug therapy; Z79.82 Long term (current) use of aspirin
CPT/HCPCS: 0241U; 71046; 80053; 81001; 85025; 87077; 87086; 87186; 87507; 93005; 93010; 96365; 96375; 99284-25; J0696; J0780; J2250; J2405; J7030

== ENCOUNTER 2024-01-10 16:50 | Emergency (ER) | payer MEDICARE, OTHER ==
[~2024-01-10] VITALS: Ht 152.4 cm; Wt 65.8 kg
[~2024-01-10 16:50] MED LIST changes: +CEPH500 PO; +LOPE2C PO
[2024-01-10 17:39] LABS: BASOPHILS ABSOLUTE AUTO 0.05 K/mm3 (0.00-0.23); BASOPHILS PERCENT AUTO 1 % (0-2); EOSINOPHILS ABSOLUTE AUTO 0.09 K/mm3 (0.00-0.68); EOSINOPHILS PERCENT AUTO 1 % (0-6); Hematocrit 45.1 % (33.0-51.0); Hemoglobin 14.4 g/dL (11.5-16.0); IMMATURE GRAN ABSOLUTE AUTO 0.04 K/mm3 (0.00-0.10); IMMATURE GRAN PERCENT AUTO 1 % (0-1); LYMPHOCYTES ABSOLUTE AUTO 1.27 K/mm3 (0.84-5.20); LYMPHOCYTES PERCENT AUTO 16 % (21-46); MONOCYTES ABSOLUTE AUTO 0.52 K/mm3 (0.16-1.47); MONOCYTES PERCENT AUTO 6 % (4-13); Mean Corpuscular HGB 28.5 pg (26.0-34.0); Mean Corpuscular HGB Conc 31.9 g/dL (31.5-36.5); Mean Corpuscular Volume 89 fL (80-100); Mean Platelet Volume 10.6 fL (9.1-12.4); NEUTROPHILS ABSOLUTE AUTO 6.12 K/mm3 (1.96-9.15); NEUTROPHILS PERCENT AUTO 76 % (41-73); Platelet Count 123 K/mm3 (150-400); RDW Coefficient Variation 16.2 % (11.7-14.2); RDW Standard Deviation 52.5 fL (35.1-46.3); Red Blood Cell Count 5.06 M/mm3 (3.80-5.20); White Blood Cell Count 8.09 K/mm3 (4.00-11.30)
[2024-01-10 18:09] LABS: Albumin, Blood 4.1 g/dL (3.4-5.0); Bilirubin, Total 0.5 mg/dL (0.1-1.0); Bun/Creatinine Ratio 13.9 (12.0-20.0); Creatinine, Blood 2.8 mg/dL (0.40-1.00); Globulin, Blood 4.3 g/dL (2.2-4.0); Potassium, Blood 4.4 mmol/L (3.5-5.5); Total Protein, Blood 8.4 g/dL (6.4-8.2)
[2024-01-10] MEDS ORDERED: NS 1,000 ML IV SCH (18:45)
[2024-01-10 18:55] LABS: Source, Urine Clean Catch
[2024-01-10 18:59] LABS: Appearance, Urine Clear (Clear); Bilirubin, Urine Neg (Neg); Blood, Urine 3+ (Neg); Color, Urine Yellow (P-Yellow); Glucose Qualitative, Urine Neg (Neg); Ketones, Urine Neg (Neg); Leukocyte Esterase, Urine Neg (Neg); Nitrite, Urine Neg (Neg); Protein, Urine 3+ (Neg); Specific Gravity, Urine 1.025 (1.003-1.022); Urobilinogen, Urine NORM (Normal)
[2024-01-10] MEDS ORDERED: Lidocaine 4% 1 Patch TOP ONE (19:00)
[2024-01-10 19:09] LABS: Amorphous Light (0-Heavy); Bacteria Few /hpf; Red Blood Cells, Urine 0-2 /hpf (0-2); Squamous Epithelial Cells Mod /hpf (Few); White Blood Cells, Urine 0-2 /hpf (0-5)
[2024-01-10] MEDS ORDERED: Ipratropium/Albuterol SulF 2.5-0.5MG/3 ML Amp INH ONE (19:15)
[2024-01-10 19:32] LABS: International Normalized Ratio 1.07; Prothrombin Time Results 11.4 Sec (9.7-11.5)
[2024-01-10 23:05] VITALS: BP 149/95
== END 2024-01-10 23:09 | disposition home or self-care (01) ==
LOC: ER 16:50
PROVIDERS: Physician Assistant; Student in an Organized Health Care Education/Training Program
DX: R10.9 Unspecified abdominal pain (principal); E11.22 Type 2 diabetes mellitus with diabetic chronic kidney disease; N18.30 Chronic kidney disease, stage 3 unspecified; I50.9 Heart failure, unspecified; J44.9 Chronic obstructive pulmonary disease, unspecified; F17.210 Nicotine dependence, cigarettes, uncomplicated; Z79.82 Long term (current) use of aspirin; Z79.899 Other long term (current) drug therapy; Z88.8 Allergy status to other drugs, medicaments and biological substances; Z79.52 Long term (current) use of systemic steroids
CPT/HCPCS: 74176; 80053; 81001; 83690; 85025; 85610; 94640; 94664; A9270; J7030